=== PATIENT | female | born 1975 ===

== ENCOUNTER 2022-09-25 07:25 | Day surgery (SDC) | payer OTHER ==
[~2022-09-25] VITALS: Ht 165.1 cm; Wt 127.0 kg
[~2022-09-25 07:25] MED LIST: DAILY VITAMIN1 EAC1 PO; GLIPIZIDE ER5 MG PO; IBUPROFEN600 MG PO; K2 PLUS D3 TAB1 EACH PO; LIPITOR40 MG PO; LISINOPRIL20 MG PO; ONDANSETRON ODT4 MG PO
[2022-09-25 07:38] VITALS: BP 122/59
[2022-09-25] MEDS ORDERED: METFORMIN HCL500 M1 PO (07:52)
[2022-09-25] MEDS ORDERED: OZEMPIC0.25 MG/01 SUB-Q (07:52)
--- NOTE | 2022-09-25 10:02 | NUR ---
09/25/22 Linh Gutierrez 2854-PATIENT ARRIVED TO PACU ON RA RR EVEN. PATIENT AWAKE/DROWSY DENIES PAIN OR NAUSEA. ABDOME SOFT. IVF INFUSING. PATIENT DOZES BACK TO SLEEP.
[2022-09-25 10:38] VITALS: BP 131/72
--- NOTE | 2022-09-26 19:01 | OR ---
[facility] [address], [place] [address] Signed DATE OF OPERATION: 09/25/2022 SURGEON: Laron Jenkins MD PREOPERATIVE DIAGNOSIS: 1. Colon screening. 2. History of uterine cancer, status post hysterectomy in September 2021. 3. BMI 46.4. POSTOPERATIVE DIAGNOSIS: Stool covered polyp at 90 cm (excised by snare technique). PROCEDURE: Total colonoscopy to cecum with cold snare polypectomy x1. ANESTHESIA: Intravenous sedation, fentanyl 100 mcg, Versed 7 mg. INDICATIONS: This morbidly obese, BMI 46.4 [place] woman is a patient of Dr. Shields and DEIDRE Pollock at [facility]. She was referred for colon screening. She has no symptoms of bleeding, diarrhea, or constipation. She does have family history of colon cancer she thinks in her mother, though that is not confirmed in any other way at this time. The patient underwent hysterectomy for uterine cancer in September of 2021 at [facility]. She is admitted at this time to undergo colonoscopy for screening, understands the risk of bleeding, infection, perforation, and so on. FINDINGS: The prep was adequate. Complete colonoscopy was undertaken to the cecum. She had a single polyp at 90 cm, it was covered with stool. It was excised with snare technique. There were no other findings of concern. DESCRIPTION OF PROCEDURE: The patient was brought to the endoscopy suite and placed in lateral decubitus position given intravenous sedation to the point of slurred speech and nystagmus. Digital rectal examination was normal. The Olympus video colonoscope was passed into the rectum and manipulated throughout the colon, ultimately intubating the cecum itself. The ileocecal valve and appendiceal orifice were normal. Scope was withdrawn, examination throughout showed no sign of abnormality until approximately 90 cm from the anal verge, where an area that was suggestive of fecal retention was noted with various manipulations, it was Electronically Signed By: LARON JENKINS MD 09/26/22 1901 PATIENT NAME: TITUS FERNANDES OPERATIVE REPORT DATE OF : 75 REPORT #: [id number] PHYSICIAN: LARON JENKINS MD PCP: ZHANNA HOLT REPORT IS CONFIDENTIAL AND NOT TO BE RELEASED WITHOUT AUTHORIZATION [facility] [address], [place] [address] Signed clear, it would not irrigate away or manipulate away on that basis, and snared with a wire loop and polypectomy performed. This freed the lesion and a Walton net was used to grasp it and withdraw it. It was removed and stool had covered with what appeared to be an actual polyps as suspected. The scope was reintroduced and the site was examined showing no sign of bleeding or other problem. Further withdrawal of scope showed no other abnormality including retroflexed view of the rectum. Scope was removed. The patient was taken to the recovery room in good condition. CONCLUDING DIAGNOSIS: Stool covered polyp at 90 cm excised. PLAN: Recommend repeat colonoscopy in 5 years whether or not the stool was adenomatous based on family history of probable colon cancer in mother. MD RAMIRO Loja/SEDRICK /[id number] cc: Zhanna Shields Copies: ZHANNA HOLT JOSEPH ~ Electronically Signed By: LARON JENKINS MD 09/26/22 1901 PATIENT NAME: TITUS FERNANDES OPERATIVE REPORT DATE OF : 75 REPORT #: [id number] PHYSICIAN: LARON JENKINS MD PCP: ZHANNA HOLT REPORT IS CONFIDENTIAL AND NOT TO BE RELEASED WITHOUT AUTHORIZATION
--- NOTE | 2022-09-29 11:55 | PATH ---
[facility] [address] [facility] [place], [place] [address] Signed SPECIMEN(S): A COLON POLYP AT 90 CM SPECIMEN SOURCE: A. COLON POLYP AT 90 CM CLINICAL HISTORY: Pre: Initial screening colonoscopy, presumptive family history of colon cancer (mother). FINAL PATHOLOGIC DIAGNOSIS: Colon polyp at 90 cm: - Mucinous and scant superficial benign epithelial cells. - See comment. COMMENT: The specimen is insufficient for definitive diagnosis. The few scant epithelial cells amongst the mucinous material are benign they are insufficient for characterization of the colon. Clinical correlation requested and resampling considered as clinically indicated. JVR:[facility]:C2NR MICROSCOPIC EXAMINATION: Histologic sections of all submitted blocks are examined by light microscopy. These findings, together with the gross examination, support the pathologic diagnosis. GROSS DESCRIPTION: The specimen, labeled and designated "Duane, colon polyp at 90 cm," is received in formalin and consists of multiple mason, soft and gelatinous tissue fragments, 3.2 x 2.2 x 0.2 cm. Entirely submitted in (A1). JS (under the direct supervision of a pathologist) The Gross Description was prepared using a voice recognition system. The report was reviewed for accuracy; however, sound-alike word errors, addition and/or deletions may occur. If there is any question about this report, please contact Client Services. PERFORMING LABORATORY: The technical component was performed by [email or web address], [address] [place] [id number] (CLIA# [id number]). Professional interpretation was performed by [facility] - Latasha PATIENT NAME: TITUS FERNANDES PATHOLOGY DATE OF : 75 REPORT #: [id number] PHYSICIAN: [facility] PATH[facility] PCP: JESSEE HOLT REPORT IS CONFIDENTIAL AND NOT TO BE RELEASED WITHOUT AUTHORIZATION [address] [address] [address] [place] [address] (CLIA#: [id number]). Diagnostician: Reynaldo Beltran MD Pathologist Electronically Signed 09/29/2022 Copies: ~ PATIENT NAME: TITUS FERNANDES PATHOLOGY DATE OF : 75 REPORT #: [id number] PHYSICIAN: [facility] PCP: JESSEE HOLT REPORT IS CONFIDENTIAL AND NOT TO BE RELEASED WITHOUT AUTHORIZATION
== END 2022-09-25 10:45 | disposition home or self-care (01) ==
LOC: DS 07:25 → OPS 07:25
PROVIDERS: ATTEND Surgery
PROC: 0DBE8ZZ Excision of Large Intestine, Via Natural or Artificial Opening Endoscopic (ICD-10-PCS; principal; 2022-09-25 09:15)
DX: Z12.11 Encounter for screening for malignant neoplasm of colon (principal); K63.5 Polyp of colon; E66.01 Morbid (severe) obesity due to excess calories; Z68.42 Body mass index [BMI] 45.0-49.9, adult; Z85.42 Personal history of malignant neoplasm of other parts of uterus; Z90.710 Acquired absence of both cervix and uterus; I10 Essential (primary) hypertension; E78.5 Hyperlipidemia, unspecified; E11.9 Type 2 diabetes mellitus without complications; Z79.84 Long term (current) use of oral hypoglycemic drugs; Z79.899 Other long term (current) drug therapy
CPT/HCPCS: 99153; G0500; J2250; J3010; J7121